=== PATIENT | female | born 1970 | race Caucasian/White ===

== ENCOUNTER 2017-04-12 19:34 | Emergency (ER) | payer SELFPAY ==
[2017-04-12] MEDS ORDERED: Rocephin 1000 MG INJ IM ONE (20:01)
[2017-04-12] MEDS ORDERED: NORCO 5/325 MG PO ONE ×2 (20:01→20:02)
--- NOTE | 2017-04-12 20:01 | ERPHSYRPT ---
- History of Present Illness Time Seen by Provider: 04/12/17 19:55 Source: patient Exam Limitations: no limitations Patient Subjective Stated Complaint: PT COMPLAINS OF DENTAL PAIN FOR THE LAST THREE DAYS. PT STATES PAIN IS NONSTOP. PT REPORTS PAIN TO THE RIGHT UPPER LIP AND RADIATES INTO THE SINUS AND EAR. Triage Nursing Assessment: PT IS AOX3, AMBULATORY TO COT W NO DIFFICULTIES SKIN IS PWD, RESPS ARE EASY AND NONLABORED. TENDERNESS TO THE RIGHT FACE. Physician History: FOR THE PAST MONTH PT HAS HAD RIGHT UPPER TOOTH PAIN, WORSE IN THE PAST 3 DAYS WITH RADIATION OF THE PAIN TO THE RIGHT EAR AND RIGHT SIDE OF THE NOSE. PT DENIES FEVER, NAUSEA, VOMITING, CHEST PAIN, SORE THROAT. Allergies/Adverse Reactions: No Known Drug Allergies Allergy (Verified 04/12/17 19:54) Home Medications: Metoprolol Succinate 50 mg [Toprol Xl 50 MG] 100 mg PO BID 04/12/17 [ History] Hx Tetanus, Diphtheria Vaccination/Date Given: Yes Hx Influenza Vaccination/Date Given: Yes Hx Pneumococcal Vaccination/Date Given: Yes Immunizations Up to Date: Yes - Review of Systems Constitutional: No Fever Ears, Nose, & Throat: Ear Pain, Nose Pain, Mouth Pain Respiratory: No Dyspnea Cardiac: No Chest Pain Abdominal/Gastrointestinal: No Nausea, No Vomiting All Other Systems: Reviewed and Negative - Past Medical History Pertinent Past Medical History: Yes Neurological History: Paralysis ENT History: No Pertinent History Cardiac History: Hypertension Respiratory History: No Pertinent History Endocrine Medical History: No Pertinent History Musculoskeletal History: No Pertinent History GI Medical History: No Pertinent History History: No Pertinent History Psycho-Social History: Anxiety Female Reproductive Disorders: No Pertinent History - Past Surgical History Past Surgical History: Yes Neuro Surgical History: No Pertinent History Cardiac: No Pertinent History Respiratory: No Pertinent History Gastrointestinal: No Pertinent History Genitourinary: No Pertinent History Musculoskeletal: No Pertinent History Female Surgical History: Section, Tubal Ligation - Social History Smoking Status: Never smoker Exposure to second hand smoke: Yes Drug Use: none Patient Lives Alone: No - Female History Hx Last Menstrual Period: 04/12/17 - Nursing Vital Signs Nursing Vital Signs: Initial Vital Signs Temperature 98.4 F Temperature Source Oral Pulse Rate 93 Respiratory Rate 20 Blood Pressure [Right Arm] 196/100 Pain Intensity 9 - Physical Exam General Appearance: alert Eye Exam: left eye: PERRL, EOMI Ear Exam: bilateral ear: TM normal Nasal Exam: normal inspection Throat Exam: dental tenderness (RIGHT MAXILLARY K-9 HAS MILDLY EDEMATOUS, ERYTHEMATOUS AND TENDER SURROUNDING GUM.) Neck Exam: normal inspection Cardiovascular/Respiratory Exam: normal breath sounds, heart sounds normal Abdominal Exam: soft (B.S. NORMAL) Neurologic Exam: alert, cooperative Skin Exam: warm, dry SpO2 Interpretation: normal SpO2: 99 Oxygen Delivery: Room Air - Course Nursing assessment & vital signs reviewed: Yes Ordered Tests: Medication Summary Generic Name Dose Route Start Last Admin Trade Name Freq PRN Reason Stop Dose Admin Hydrocodone Bitart/Acetaminophen 2 tab 04/12/17 20:02 [place] 5/325 Mg PO 04/12/17 20:03 SENT HOME W/ PATIENT ONE Discontinued Medications Generic Name Dose Route Start Last Admin Trade Name Freq PRN Reason Stop Dose Admin Hydrocodone Bitart/Acetaminophen 2 tab 04/12/17 20:01 [place] 5/325 Mg PO 04/12/17 20:02 STAT ONE Ceftriaxone Sodium 1,000 mg 04/12/17 20:01 Rocephin 1000 Mg Inj IM 04/12/17 20:02 STAT ONE - Departure Time of Disposition: 20:11 Departure Disposition: Home Clinical Impression: TOOTH ABSCESS Condition: Fair Critical Care Time: No Instructions: Tooth Abscess Additional Instructions: FOLLOW UP WITH DENTIST/PRIVATE DOCTOR TOMORROW. Prescriptions: Naproxen [Naprosyn] 500 mg PO Q12H PRN PRN #20 tablet PRN Reason: Pain Cephalexin Monohydrate [Keflex] 500 mg PO TID #30 capsule
[2017-04-12] MEDS ORDERED: NORCO 5/325 MG ONE (20:21)
[2017-04-12] MEDS ORDERED: Rocephin 1000 MG INJ ONE (20:21)
[2017-04-12] MEDS ORDERED: XYLOCAINE 1% HCL 20 ML MDV ONE (20:24)
[2017-04-12 20:44] VITALS: BP 172/98; PULSE 90; O2SAT 97
== END 2017-04-12 20:44 | disposition home or self-care (01) ==
LOC: ED 19:34
DX: K04.7 Periapical abscess without sinus (principal)
CPT/HCPCS: 96372; 99282; J0696; A9270-GY

== ENCOUNTER 2017-08-13 16:08 | Emergency (ER) | payer OTHER ==
[2017-08-13] MEDS ORDERED: BENADRYL 50 MG/ML IV ONE (16:24)
[2017-08-13] MEDS ORDERED: solu-MEDROL 125 MG IV ONE (16:24)
--- NOTE | 2017-08-13 16:24 | ERPHSYRPT ---
- History of Present Illness Time Seen by Provider: 08/13/17 16:16 Source: patient, family Exam Limitations: no limitations Physician History: The patient is a 46-year-old female with her boyfriend complaining of an itchy spreading rash on her arms chest back and neck since yesterday. She has taken Claritin and 50 mg of Benadryl orally without relief. She states she is having some chest tightness as well. Last week she began wearing her boyfriend's shirts which of been washing the different laundry detergent that she uses. Her past medical history is significant for hypertension. Timing/Duration: yesterday Quality: itchy Severity: moderate Location: torso, extremities (upper), neck Possible Causes: soaps Modifying Factors: Improves With: antihistamine Associated Symptoms: difficulty breathing, rash, No edema Allergies/Adverse Reactions: No Known Drug Allergies Allergy (Verified 08/13/17 16:23) Home Medications: Metoprolol Succinate 50 mg [Toprol Xl 50 MG] 100 mg PO BID 04/12/17 [ History] Hx Tetanus, Diphtheria Vaccination/Date Given: Yes Hx Influenza Vaccination/Date Given: Yes Hx Pneumococcal Vaccination/Date Given: Yes - Review of Systems Constitutional: No Fever, No Chills Eyes: No Symptoms Ears, Nose, & Throat: No Symptoms Respiratory: Dyspnea Cardiac: No Chest Pain, No Edema, No Syncope Abdominal/Gastrointestinal: No Abdominal Pain, No Nausea, No Vomiting, No Diarrhea Genitourinary Symptoms: No Dysuria Musculoskeletal: No Back Pain, No Neck Pain Skin: Pruritis, Rash Neurological: No Dizziness, No Focal Weakness, No Sensory Changes Psychological: No Symptoms Endocrine: No Symptoms Hematologic/Lymphatic: No Symptoms Immunological/Allergic: No Symptoms All Other Systems: Reviewed and Negative - Past Medical History Pertinent Past Medical History: Yes Neurological History: Paralysis ENT History: No Pertinent History Cardiac History: Hypertension Respiratory History: No Pertinent History Endocrine Medical History: No Pertinent History Musculoskeletal History: No Pertinent History GI Medical History: No Pertinent History History: No Pertinent History Psycho-Social History: Anxiety Female Reproductive Disorders: No Pertinent History - Past Surgical History Past Surgical History: Yes Neuro Surgical History: No Pertinent History Cardiac: No Pertinent History Respiratory: No Pertinent History Gastrointestinal: No Pertinent History Genitourinary: No Pertinent History Musculoskeletal: No Pertinent History Female Surgical History: Section, Tubal Ligation - Social History Smoking Status: Never smoker Exposure to second hand smoke: Yes Drug Use: none Patient Lives Alone: No - Physical Exam General Appearance: no apparent distress, alert Eye Exam: PERRL/EOMI, eyes nml inspection Ears, Nose, Throat Exam: normal ENT inspection, pharynx normal, moist mucous membranes Neck Exam: normal inspection, non-tender, supple, full range of motion Respiratory Exam: normal breath sounds, lungs clear, No respiratory distress, No wheezing, No stridor Cardiovascular Exam: regular rate/rhythm, normal heart sounds Gastrointestinal/Abdomen Exam: soft, mass, No tenderness Pelvic Exam: not done Rectal Exam: not done Back Exam: normal inspection, normal range of motion, No CVA tenderness, No vertebral tenderness Extremity Exam: normal inspection, normal range of motion, No swelling Neurologic Exam: alert, oriented x 3, cooperative, normal mood/affect, sensation nml, No motor deficits Skin Exam: rash (Examination of the skin of the chest, back, bilateral shoulders and upper arms, and back of the neck shows hive-like rash distributed over this region. No swelling noted on the face, lips, or throat.) SpO2 Interpretation: normal - Progress Progress: improved Counseled pt/family regarding: diagnosis - Departure Time of Disposition: 16:31 Departure Disposition: Home Clinical Impression: Allergic reaction Condition: Stable Critical Care Time: No Referrals: ALINE ANSARI [Primary Care Provider] - Additional Instructions: You have an allergic reaction. You were given Benadryl 50 mg, Solu-Medrol 125 mg, and Zofran 4 mg by IV in the ER. Take Benadryl 25-50 mg every 2-4 hours as needed. Take prednisone starting this evening 60 mg daily for 5 days. Take zofran 4 mg ODT every 6 hrs as needed. Avoid the laundry soap that we think caused the allergic reaction. Follow-up as needed. Prescriptions: Ondansetron ODT 4 MG [Zofran Odt 4 mg] 1 tab PO Q6H PRN PRN #10 tab.rapdis PRN Reason: Nausea/Vomiting Prednisone 10 mg [Deltasone 10 mg] 60 mg PO DAILY #30 tablet
[2017-08-13] MEDS ORDERED: solu-MEDROL 125 MG ONE (16:29)
[2017-08-13] MEDS ORDERED: BENADRYL 50 MG/ML ONE (16:29)
[2017-08-13] MEDS ORDERED: Zofran 4 MG/2 ML VIAL IV ONE (16:48)
[2017-08-13] MEDS ORDERED: Zofran 4 MG/2 ML VIAL ONE (16:51)
[2017-08-13 17:37] VITALS: BP 135/101; PULSE 90; O2SAT 98
== END 2017-08-13 17:37 | disposition home or self-care (01) ==
LOC: ED 16:08
DX: T78.40XA Allergy, unspecified, initial encounter (principal)
CPT/HCPCS: 36000; 96374; 96375; 99284; J1200; J2405; J2930

== ENCOUNTER 2017-08-15 13:37 | Emergency (ER) | payer OTHER ==
[2017-08-15] MEDS: solu-MEDROL 125 MG IV ONE (14:14)
[2017-08-15] MEDS ORDERED: ATARAX 25 MG ONE (14:15)
[2017-08-15] MEDS ORDERED: solu-MEDROL 125 MG ONE (14:15)
--- NOTE | 2017-08-15 14:15 | ERPHSYRPT ---
- History of Present Illness Time Seen by Provider: 08/15/17 14:05 Source: patient Exam Limitations: no limitations Patient Subjective Stated Complaint: PT states "I was in here sunday for an allergic reaction and I was given benadryl and steroids. I thought the reaction was to a new detergent and I have gotten rid of that detergent and re washed everything but I am still swollen." Triage Nursing Assessment: PT alert and oriented X 3, skin pwd. Pt ambulates with a steady upright gait, able to speak in clear full sentences. Pt eyes are swollen bilat, pt right wrist is swollen. appears in no respiratory distress. Physician History: 46-year-old white female states that she was seen here 2 days ago secondary to a rash it was felt that this was a contact dermatitis secondary to detergent. She states that she stopped the detergent she had been given a shot of Solu- Medrol and was placed on Benadryl and in a tapering prednisone. She apparently only took 2 of her prednisone tablets this morning. She states that she feels like she is swelling up more she states that her rash is a spreading and she feels like her hands are sore. Past medical history includes neuropathy, (patient had a list of paralysis on her chart when I asked her what this was she's winded in her right leg and stated it was from neuropathy). Patient also with history of high blood pressure and anxiety. Past surgical history includes and tubal ligation Timing/Duration: day(s) (2 days), worse Modifying Factors: Improves With: medication (patient was on Benadryl and prednisone) Associated Symptoms: rash, No nausea, No vomiting, No abdominal pain, No shortness of breath, No heartburn, No diaphoresis, No cough, No chills, No chest pain, No fever, No headaches, No loss of appetite, No malaise, No syncope , No seizure, No weakness Allergies/Adverse Reactions: No Known Drug Allergies Allergy (Verified 08/13/17 16:23) Home Medications: Metoprolol Succinate 50 mg [Toprol Xl 50 MG] 100 mg PO BID 04/12/17 [ History] Hx Tetanus, Diphtheria Vaccination/Date Given: Yes Hx Influenza Vaccination/Date Given: Yes Hx Pneumococcal Vaccination/Date Given: No Immunizations Up to Date: Yes - Review of Systems Constitutional: No Fever, No Chills Eyes: No Symptoms Ears, Nose, & Throat: No Symptoms, No Ear Pain, No Ear Discharge, No Hearing Changes, No Tinnitus, No Nose Pain, No Nose Congestion, No Nose Discharge, No Sinus Drainage, No Epistaxis, No Mouth Pain, No Mouth Swelling, No Loose Teeth, No Throat Pain, No Throat Swelling, No Hoarse, No Painful Swallowing, No Snoring Respiratory: Dyspnea (patient states she feels mildly short of breath) Cardiac: No Chest Pain, No Edema, No Syncope Abdominal/Gastrointestinal: No Abdominal Pain, No Nausea, No Vomiting, No Diarrhea Genitourinary Symptoms: No Dysuria Musculoskeletal: No Back Pain, No Neck Pain Skin: Rash (Erythematous raised rash on patient's trunk, bands, blanches) Neurological: No Dizziness, No Focal Weakness, No Sensory Changes Psychological: No Symptoms Endocrine: No Symptoms All Other Systems: Reviewed and Negative - Past Medical History Pertinent Past Medical History: Yes Neurological History: Paralysis ENT History: No Pertinent History Cardiac History: Hypertension Respiratory History: No Pertinent History Endocrine Medical History: No Pertinent History Musculoskeletal History: No Pertinent History GI Medical History: No Pertinent History History: No Pertinent History Psycho-Social History: Anxiety Female Reproductive Disorders: No Pertinent History - Past Surgical History Past Surgical History: Yes Neuro Surgical History: No Pertinent History Cardiac: No Pertinent History Respiratory: No Pertinent History Gastrointestinal: No Pertinent History Genitourinary: No Pertinent History Musculoskeletal: No Pertinent History Female Surgical History: Section, Tubal Ligation - Social History Smoking Status: Never smoker Exposure to second hand smoke: Yes Drug Use: none Patient Lives Alone: No - Female History Hx Last Menstrual Period: 05/08/2017 - Nursing Vital Signs Nursing Vital Signs: Initial Vital Signs Temperature 97.6 F 08/15/17 13:46 Pulse Rate 64 08/15/17 13:46 Respiratory Rate 18 08/15/17 13:46 Blood Pressure 163/80 08/15/17 13:46 O2 Sat by Pulse Oximetry 100 08/15/17 13:46 Pain Scale Pain Intensity 6 - Physical Exam General Appearance: mild distress Eye Exam: PERRL/EOMI, eyes nml inspection, other (fundi unremarkable) Ears, Nose, Throat Exam: normal ENT inspection, TMs normal, pharynx normal, moist mucous membranes Neck Exam: normal inspection, non-tender, supple, full range of motion Respiratory Exam: normal breath sounds, lungs clear, No respiratory distress Cardiovascular Exam: regular rate/rhythm, normal heart sounds, normal peripheral pulses Gastrointestinal/Abdomen Exam: soft, normal bowel sounds, No tenderness, No mass Back Exam: normal inspection, normal range of motion, No CVA tenderness, No vertebral tenderness Extremity Exam: normal inspection, normal range of motion, pelvis stable Neurologic Exam: alert, oriented x 3, cooperative, teacher II-XII nml as tested, normal mood/affect, nml cerebellar function, nml station & gait, sensation nml, No motor deficits Skin Exam: rash (erythematous raised rash on patient's trunk and arms hands) Lymphatic Exam: No adenopathy SpO2 Interpretation: normal (100%) SpO2: 100 Oxygen Delivery: Room Air Ordered Tests: Active Orders 24 hr Category Date Time Status CULTURE, THROAT Stat Lab 08/15/17 14:09 Received STREP SCREEN-BETA A Stat Lab 08/15/17 14:09 Completed Medication Summary Discontinued Medications Generic Name Dose Route Start Last Admin Trade Name Jimmyq PRN Reason Stop Dose Admin Hydroxyzine HCl 50 mg 08/15/17 14:09 08/15/17 14:17 Atarax 25 Mg PO 08/15/17 14:10 50 mg STAT ONE Administration Hydroxyzine HCl Confirm 08/15/17 14:15 Atarax 25 Mg Administered 08/15/17 14:16 Dose 50 mg .ROUTE .STK-MED ONE Methylprednisolone Sodium Succinate 125 mg 08/15/17 14:08 08/15/17 14:14 Solu-Medrol 125 Mg IV 08/15/17 14:09 Not Given STAT ONE Methylprednisolone Sodium Succinate 125 mg 08/15/17 14:11 08/15/17 14:17 Solu-Medrol 125 Mg IM 08/15/17 14:12 125 mg STAT ONE Administration Methylprednisolone Sodium Succinate Confirm 08/15/17 14:15 Solu-Medrol 125 Mg Administered 08/15/17 14:16 Dose 125 mg .ROUTE .STK-MED ONE Lab/Rad Data: Laboratory Results 08/15/17 Range/Units 14:09 Streptococcus Screen NEGATIVE (Negative) - Progress Progress: improved Progress Note: 08/15/17 14:41 Patient given Vistaril 50 mg orally and Solu-Medrol 125 IM. Rash appears to be improving. Will go ahead and discharge patient with a prescription for Vistaril 25 mg one to 2 orally every 6 hours as needed. , Plenty of fluids. , Patient is to follow-up with her family doctor. She is to return for acute distress or for severe symptoms. Strep is negative. She is to continue prednisone as prescribed 2 days ago 08/15/17 14:46 - Departure Time of Disposition: 14:47 Departure Disposition: Home Clinical Impression: Contact dermatitis Qualifiers: Contact dermatitis type: unspecified Contact dermatitis trigger: unspecified trigger Qualified Code(s): L25.9 - Unspecified contact dermatitis, unspecified cause Allergic reaction Qualifiers: Encounter type: subsequent encounter Qualified Code(s): T78.40XD - Allergy, unspecified, subsequent encounter Condition: Fair Critical Care Time: No Referrals: ALINE ANSARI [Primary Care Provider] - Additional Instructions: Return home. Continue prednisone as prescribed 2 days ago. Vistaril 25 mg one to 2 orally every 6 hours as needed. Plenty of fluids. Follow-up with your family doctor. Return for acute distress or for severe symptoms.
[2017-08-15] MEDS: solu-MEDROL 125 MG IM ONE (14:17)
[2017-08-15] MEDS: ATARAX 25 MG PO ONE (14:17)
[2017-08-15 14:59] VITALS: BP 133/74; PULSE 60; O2SAT 99
== END 2017-08-15 14:58 | disposition home or self-care (01) ==
LOC: ED 13:37
DX: L25.9 Unspecified contact dermatitis, unspecified cause (principal); T78.40XD Allergy, unspecified, subsequent encounter
CPT/HCPCS: 87070; 87430; J2930; A9270-GY

== ENCOUNTER 2017-10-13 18:56 | Emergency (ER) | payer OTHER ==
[2017-10-13] MEDS ORDERED: Hydromorphone 1 mg/ml Ampule IV ONE (19:08)
[2017-10-13] MEDS ORDERED: Phenergan 25 MG INJ IV ONE (19:08)
[2017-10-13] MEDS ORDERED: Sodium Chloride 0.9% 1000 ML 1,000 ML IV STA ×3 (19:08→22:03)
--- NOTE | 2017-10-13 19:08 | ERPHSYRPT ---
- History of Present Illness Time Seen by Provider: 10/13/17 19:00 Historian: patient Exam Limitations: no limitations Patient Subjective Stated Complaint: having vomiting and abdominal pain for a couple of days. started new medication for neuropathy but unsure of what it is.. has had a rash from antibiotics. says unable to keep anything down. Triage Nursing Assessment: anxious and alert. holding stomache. abdomen soft but slightly tender on palpation.. diffuse pain. states has been peeing everytime she vomits. staes tried to drink lemonade today but vomited. lungs clear bilarterally. Physician History: SINCE YESTERDAY PT HAS HAD VOMITING X10 WITHOUT BLOOD AND CONSTANT ACHY UPPER ABDOMINAL PAIN. PT ALSO C/O A FRONTAL HEADACHE FOR THE PAST 7 HOURS. LAST BM WAS 2 DAYS AGO & WNL. PT ALSO C/O NEUROPATHY PAIN IN HER FEET FOR OVER 1 YEAR. PT DENIES CHEST PAIN, SHORTNESS OF AIR, EARACHE. Allergies/Adverse Reactions: No Known Drug Allergies Allergy (Verified 10/13/17 19:18) Home Medications: Metoprolol Succinate 50 mg [Toprol Xl 50 MG] 100 mg PO BID 04/12/17 [ History] Hx Tetanus, Diphtheria Vaccination/Date Given: Yes Hx Influenza Vaccination/Date Given: Yes Hx Pneumococcal Vaccination/Date Given: No Immunizations Up to Date: (unknown) - Review of Systems Constitutional: No Chills Ears, Nose, & Throat: No Ear Pain Respiratory: No Cough, No Dyspnea Cardiac: No Chest Pain Abdominal/Gastrointestinal: Abdominal Pain, Vomiting, No Diarrhea Musculoskeletal: Other (NEUROPATHY PAIN IN FEET) Neurological: Headache Endocrine: No Excessive Sweating All Other Systems: Reviewed and Negative - Past Medical History Pertinent Past Medical History: Yes ENT History: No Pertinent History Cardiac History: Hypertension Respiratory History: No Pertinent History Endocrine Medical History: No Pertinent History Musculoskeletal History: No Pertinent History GI Medical History: No Pertinent History History: No Pertinent History Psycho-Social History: Anxiety Female Reproductive Disorders: No Pertinent History - Past Surgical History Past Surgical History: Yes Neuro Surgical History: No Pertinent History Cardiac: No Pertinent History Respiratory: No Pertinent History Gastrointestinal: No Pertinent History Genitourinary: No Pertinent History Musculoskeletal: No Pertinent History Female Surgical History: Section, Tubal Ligation - Social History Smoking Status: Never smoker Exposure to second hand smoke: No Drug Use: none Patient Lives Alone: No - Female History Hx Now: No - Nursing Vital Signs Nursing Vital Signs: Initial Vital Signs Temperature 98.4 F 10/13/17 18:57 Pulse Rate 99 H 10/13/17 18:57 Respiratory Rate 22 10/13/17 18:57 Blood Pressure 186/79 10/13/17 18:57 O2 Sat by Pulse Oximetry 98 10/13/17 18:57 Pain Scale Pain Intensity 5 - Physical Exam General Appearance: alert Eye Exam: PERRL/EOMI Ears, Nose, Throat Exam: TMs normal, dry mucous membranes, pharyngeal erythema Neck Exam: normal inspection Respiratory Exam: lungs clear Cardiovascular Exam: normal heart sounds Gastrointestinal/Abdomen Exam: soft, tenderness (MILD DIFFUSE TENDERNESS), other (B.S. MILDLY HYPERACTIVE AND NORMOTONIC), No guarding Back Exam: normal range of motion Extremity Exam: normal inspection, No pedal edema Neurologic Exam: alert, cooperative Skin Exam: warm, dry SpO2 Interpretation: normal SpO2: 98 Oxygen Delivery: Room Air - Course Nursing assessment & vital signs reviewed: Yes - CT Exams Abdomen/Pelvis CT Interpretation: Tele-radiologist Report (SLUDGE IN GALLBLADDER. SEE REST OF REPORT.) Ordered Tests: Active Orders 24 hr Category Date Time Status Clean Catch Urine Specimen STAT Care 10/13/17 19:08 Active IV Insertion STAT Care 10/13/17 19:08 Active ABDOMEN AND PELVIS W/0 CONTRAS [CT] Stat Exams 10/13/17 19:09 Taken AMYLASE Stat Lab 10/13/17 19:30 Completed BMP Stat Lab 10/13/17 22:30 Completed CBC W DIFF Stat Lab 10/13/17 19:30 Completed CMP Stat Lab 10/13/17 19:30 Completed CULTURE, THROAT Stat Lab 10/13/17 19:30 Received HCG QUALITATIVE,SERUM Stat Lab 10/13/17 19:30 Completed LIPASE Stat Lab 10/13/17 19:30 Completed MAG [MAGNESIUM] Stat Lab 10/13/17 19:30 Completed MAG [MAGNESIUM] Stat Lab 10/13/17 22:30 Completed [place] Screen Stat Lab 10/13/17 19:30 Completed STREP SCREEN-BETA A Stat Lab 10/13/17 19:30 Completed UA W/RFX UR CULTURE Stat Lab 10/13/17 23:55 Completed Urine Triage Profile Stat Lab 10/13/17 23:55 Completed Medication Summary Generic Name Dose Route Start Last Admin Trade Name Freq PRN Reason Stop Dose Admin Hydromorphone HCl 1 mg 10/14/17 00:29 Hydromorphone 1 Mg/Ml Ampule IV 10/14/17 00:30 STAT ONE Sodium Chloride 1,000 mls @ 999 mls/hr 10/13/17 23:45 10/13/17 23:45 Sodium Chloride 0.45% 1000 Ml IV 11/12/17 23:44 999 mls/hr .Q1H1M MICHELLE Administration Promethazine HCl 12.5 mg 10/14/17 00:29 Phenergan 25 Mg Inj IV 10/14/17 00:30 STAT ONE Discontinued Medications Generic Name Dose Route Start Last Admin Trade Name Nitin PRN Reason Stop Dose Admin Hydromorphone HCl 1 mg 10/13/17 19:08 10/13/17 19:19 Hydromorphone 1 Mg/Ml Ampule IV 10/13/17 19:09 1 mg STAT ONE Administration Hydromorphone HCl Confirm 10/13/17 19:14 Hydromorphone 1 Mg/Ml Ampule Administered 10/13/17 19:15 Dose 1 mg .ROUTE .STK-MED ONE Sodium Chloride 1,000 mls @ 999 mls/hr 10/13/17 19:08 10/13/17 19:19 Sodium Chloride 0.9% 1000 Ml IV 10/13/17 20:08 999 mls/hr .Q1H1M STA Administration Sodium Chloride Confirm 10/13/17 19:14 Sodium Chloride 0.9% 1000 Ml Administered 10/13/17 19:15 Dose 1,000 mls @ ud .ROUTE .STK-MED ONE Sodium Chloride 1,000 mls @ 999 mls/hr 10/13/17 20:53 10/13/17 20:56 Sodium Chloride 0.9% 1000 Ml IV 10/13/17 21:53 999 mls/hr .Q1H1M STA Administration Sodium Chloride Confirm 10/13/17 20:55 Sodium Chloride 0.9% 1000 Ml Administered 10/13/17 20:56 Dose 1,000 mls @ ud .ROUTE .STK-MED ONE Sodium Chloride 1,000 mls @ 999 mls/hr 10/13/17 22:03 10/13/17 22:06 Sodium Chloride 0.9% 1000 Ml IV 10/13/17 23:03 999 mls/hr .Q1H1M STA Administration Sodium Chloride Confirm 10/13/17 22:04 Sodium Chloride 0.9% 1000 Ml Administered 10/13/17 22:05 Dose 1,000 mls @ ud .ROUTE .STK-MED ONE Sodium Chloride Confirm 10/13/17 23:42 Sodium Chloride 0.9% 1000 Ml Administered 10/13/17 23:43 Dose 1,000 mls @ ud .ROUTE .STK-MED ONE Promethazine HCl 12.5 mg 10/13/17 19:08 10/13/17 19:19 Phenergan 25 Mg Inj IV 10/13/17 19:09 12.5 mg STAT ONE Administration Promethazine HCl Confirm 10/13/17 19:13 Phenergan 25 Mg Inj Administered 10/13/17 19:14 Dose 25 mg .ROUTE .STK-MED ONE Lab/Rad Data: Laboratory Result Diagrams 10/13/17 19:30 10/13/17 22:30 Laboratory Results 10/13/17 10/13/17 10/13/17 Range/Units 23:55 23:55 22:30 WBC (4.0-10.5) K/mm3 RBC (4.1-5.4) M/mm3 Hgb (12.0-16.0) gm/dl Hct (35-47) % MCV (78-100) fl MCH (26-32) pg MCHC (32-36) g/dl RDW (11.5-14.0) % Plt Count (150-450) K/mm3 MPV (6-9.5) fl Gran % (36.0-66.0) % Lymphocytes % (24.0-44.0) % Monocytes % (0.0-12.0) % Eosinophils % (0.00-5.0) % Basophils % (0.0-0.4) % Basophils # (0-0.4) Sodium 149 H (136-145) mEq/L Potassium 3.9 (3.5-5.1) mEq/L Chloride 114 H (98-107) mEq/L Carbon Dioxide 23.5 (21-32) mEq/L Anion Gap 15.3 H (5-15) MEQ/L BUN 14 (9-20) mg/dL Creatinine 0.74 (0.55-1.30) mg/dl Estimated GFR > 60 ML/MIN Glucose 77 (70-110) MG/DL Calcium 8.3 L (8.5-10.1) mg/dL Magnesium 1.8 (1.8-2.4) mg/dL Total Bilirubin (0.2-1.0) mg/dL AST (15-37) U/L ALT (12-78) U/L Alkaline Phosphatase (46-116) U/L Serum Total Protein (6.4-8.2) gm/dL Albumin (3.4-5.0) g/dL Amylase (25-115) U/L Lipase (73-393) U/L Serum , Qual (Negative) Ur Collection Type CLEAN CATCH Urine Color YELLOW (YELLOW) Urine Appearance CLEAR (CLEAR) Urine pH 6.0 (5-6) Ur Specific [place] 1.015 (1.005-1.025) Urine Protein NEGATIVE (Negative) Urine Ketones NEGATIVE (NEGATIVE) Urine Blood NEGATIVE (0-5) Jamshid/ul Urine Nitrite NEGATIVE (NEGATIVE) Urine Bilirubin NEGATIVE (NEGATIVE) Urine Urobilinogen NORMAL (0-1) mg/dL Ur Leukocyte Esterase NEGATIVE (NEGATIVE) Urine Culture Reflexed NO (NO) Urine Glucose NEGATIVE (NEGATIVE) mg/dL Urine Opiates Level NEG. (NEGATIVE) Ur Methadone NEG. (NEGATIVE) Urine Barbiturates NEG. (NEGATIVE) Ur Phencyclidine (PCP) NEG. (NEGATIVE) Urine Amphetamine NEG. (NEGATIVE) U Benzodiazepine Level NEG. (NEGATIVE) Urine Cocaine NEG. (NEGATIVE) Urine Marijuana (THC) NEG. (NEGATIVE) Monoscreen (Negative) Influenza Type A Ag (NEGATIVE) Influenza Type B Ag (NEGATIVE) RSV (PCR) (Negative) Streptococcus Screen (Negative) Specimen Received 10/13/17 [id number] 10/13/17 10/13/17 10/13/17 Range/Units 19:30 19:30 19:30 WBC (4.0-10.5) K/mm3 RBC (4.1-5.4) M/mm3 Hgb (12.0-16.0) gm/dl Hct (35-47) % MCV (78-100) fl MCH (26-32) pg MCHC (32-36) g/dl RDW (11.5-14.0) % Plt Count (150-450) K/mm3 MPV (6-9.5) fl Gran % (36.0-66.0) % Lymphocytes % (24.0-44.0) % Monocytes % (0.0-12.0) % Eosinophils % (0.00-5.0) % Basophils % (0.0-0.4) % Basophils # (0-0.4) Sodium (136-145) mEq/L Potassium (3.5-5.1) mEq/L Chloride (98-107) mEq/L Carbon Dioxide (21-32) mEq/L Anion Gap (5-15) MEQ/L BUN (9-20) mg/dL Creatinine (0.55-1.30) mg/dl Estimated GFR ML/MIN Glucose (70-110) MG/DL Calcium (8.5-10.1) mg/dL Magnesium (1.8-2.4) mg/dL Total Bilirubin (0.2-1.0) mg/dL AST (15-37) U/L ALT (12-78) U/L Alkaline Phosphatase (46-116) U/L Serum Total Protein (6.4-8.2) gm/dL Albumin (3.4-5.0) g/dL Amylase (25-115) U/L Lipase (73-393) U/L Serum , Qual (Negative) Ur Collection Type Urine Color (YELLOW) Urine Appearance (CLEAR) Urine pH (5-6) Ur Specific [place] (1.005-1.025) Urine Protein (Negative) Urine Ketones (NEGATIVE) Urine Blood (0-5) Jamshid/ul Urine Nitrite (NEGATIVE) Urine Bilirubin (NEGATIVE) Urine Urobilinogen (0-1) mg/dL Ur Leukocyte Esterase (NEGATIVE) Urine Culture Reflexed (NO) Urine Glucose (NEGATIVE) mg/dL Urine Opiates Level (NEGATIVE) Ur Methadone (NEGATIVE) Urine Barbiturates (NEGATIVE) Ur Phencyclidine (PCP) (NEGATIVE) Urine Amphetamine (NEGATIVE) U Benzodiazepine Level (NEGATIVE) Urine Cocaine (NEGATIVE) Urine Marijuana (THC) (NEGATIVE) Monoscreen NEGATIVE (Negative) Influenza Type A Ag NEGATIVE (NEGATIVE) Influenza Type B Ag NEGATIVE (NEGATIVE) RSV (PCR) NEGATIVE (Negative) Streptococcus Screen NEGATIVE (Negative) Specimen Received 10/13/17 10/13/17 10/13/17 Range/Units 19:30 19:30 19:30 WBC (4.0-10.5) K/mm3 RBC (4.1-5.4) M/mm3 Hgb (12.0-16.0) gm/dl Hct (35-47) % MCV (78-100) fl MCH (26-32) pg MCHC (32-36) g/dl RDW (11.5-14.0) % Plt Count (150-450) K/mm3 MPV (6-9.5) fl Gran % (36.0-66.0) % Lymphocytes % (24.0-44.0) % Monocytes % (0.0-12.0) % Eosinophils % (0.00-5.0) % Basophils % (0.0-0.4) % Basophils # (0-0.4) Sodium 148 H (136-145) mEq/L Potassium 3.5 (3.5-5.1) mEq/L Chloride 110 H (98-107) mEq/L Carbon Dioxide 25.4 (21-32) mEq/L Anion Gap 15.7 H (5-15) MEQ/L BUN 16 (9-20) mg/dL Creatinine 0.83 (0.55-1.30) mg/dl Estimated GFR > 60 ML/MIN Glucose 87 (70-110) MG/DL Calcium 9.1 (8.5-10.1) mg/dL Magnesium 1.8 (1.8-2.4) mg/dL Total Bilirubin 0.30 (0.2-1.0) mg/dL AST 14 L (15-37) U/L ALT 25 (12-78) U/L Alkaline Phosphatase 69 (46-116) U/L Serum Total Protein 7.4 (6.4-8.2) gm/dL Albumin 4.4 (3.4-5.0) g/dL Amylase 37 (25-115) U/L Lipase 142 (73-393) U/L Serum , Qual NEGATIVE (Negative) Ur Collection Type Urine Color (YELLOW) Urine Appearance (CLEAR) Urine pH (5-6) Ur Specific [place] (1.005-1.025) Urine Protein (Negative) Urine Ketones (NEGATIVE) Urine Blood (0-5) Jamshid/ul Urine Nitrite (NEGATIVE) Urine Bilirubin (NEGATIVE) Urine Urobilinogen (0-1) mg/dL Ur Leukocyte Esterase (NEGATIVE) Urine Culture Reflexed (NO) Urine Glucose (NEGATIVE) mg/dL Urine Opiates Level (NEGATIVE) Ur Methadone (NEGATIVE) Urine Barbiturates (NEGATIVE) Ur Phencyclidine (PCP) (NEGATIVE) Urine Amphetamine (NEGATIVE) U Benzodiazepine Level (NEGATIVE) Urine Cocaine (NEGATIVE) Urine Marijuana (THC) (NEGATIVE) Monoscreen (Negative) Influenza Type A Ag (NEGATIVE) Influenza Type B Ag (NEGATIVE) RSV (PCR) (Negative) Streptococcus Screen (Negative) Specimen Received 10/13/17 Range/Units 19:30 WBC 6.9 (4.0-10.5) K/mm3 RBC 4.19 (4.1-5.4) M/mm3 Hgb 12.8 (12.0-16.0) gm/dl Hct 39.0 (35-47) % MCV 93.1 (78-100) fl MCH 30.5 (26-32) pg MCHC 32.8 (32-36) g/dl RDW 13.1 (11.5-14.0) % Plt Count 241 (150-450) K/mm3 MPV 10.4 H (6-9.5) fl Gran % 59.2 (36.0-66.0) % Lymphocytes % 30.5 (24.0-44.0) % Monocytes % 7.7 (0.0-12.0) % Eosinophils % 1.7 (0.00-5.0) % Basophils % 0.9 (0.0-0.4) % Basophils # 0.06 (0-0.4) Sodium (136-145) mEq/L Potassium (3.5-5.1) mEq/L Chloride (98-107) mEq/L Carbon Dioxide (21-32) mEq/L Anion Gap (5-15) MEQ/L BUN (9-20) mg/dL Creatinine (0.55-1.30) mg/dl Estimated GFR ML/MIN Glucose (70-110) MG/DL Calcium (8.5-10.1) mg/dL Magnesium (1.8-2.4) mg/dL Total Bilirubin (0.2-1.0) mg/dL AST (15-37) U/L ALT (12-78) U/L Alkaline Phosphatase (46-116) U/L Serum Total Protein (6.4-8.2) gm/dL Albumin (3.4-5.0) g/dL Amylase (25-115) U/L Lipase (73-393) U/L Serum , Qual (Negative) Ur Collection Type Urine Color (YELLOW) Urine Appearance (CLEAR) Urine pH (5-6) Ur Specific [place] (1.005-1.025) Urine Protein (Negative) Urine Ketones (NEGATIVE) Urine Blood (0-5) Jamshid/ul Urine Nitrite (NEGATIVE) Urine Bilirubin (NEGATIVE) Urine Urobilinogen (0-1) mg/dL Ur Leukocyte Esterase (NEGATIVE) Urine Culture Reflexed (NO) Urine Glucose (NEGATIVE) mg/dL Urine Opiates Level (NEGATIVE) Ur Methadone (NEGATIVE) Urine Barbiturates (NEGATIVE) Ur Phencyclidine (PCP) (NEGATIVE) Urine Amphetamine (NEGATIVE) U Benzodiazepine Level (NEGATIVE) Urine Cocaine (NEGATIVE) Urine Marijuana (THC) (NEGATIVE) Monoscreen (Negative) Influenza Type A Ag (NEGATIVE) Influenza Type B Ag (NEGATIVE) RSV (PCR) (Negative) Streptococcus Screen (Negative) Specimen Received - Departure Time of Disposition: 00:34 Departure Disposition: Home Clinical Impression: VOMITING, DEHYDRATION, ABDOMINAL PAIN Condition: Stable Critical Care Time: No Referrals: ALINE ANSARI [Primary Care Provider] - Instructions: Vomiting -- Adult Additional Instructions: FOLLOW UP WITH PRIVATE DOCTOR TOMORROW. RETURN TO [facility] FOR AN OUTPATIENT GALLBLADDER ULTRASOUND. Prescriptions: Ondansetron [Zofran Odt] 4 mg PO Q4H PRN PRN #14 tab.rapdis PRN Reason: Nausea/Vomiting
[2017-10-13] MEDS ORDERED: Phenergan 25 MG INJ ONE (19:13)
[2017-10-13] MEDS ORDERED: Hydromorphone 1 mg/ml Ampule ONE (19:14)
[2017-10-13] MEDS ORDERED: Sodium Chloride 0.9% 1000 ML 1,000 ML ONE ×3 (19:14→22:04)
[2017-10-13 19:39] LABS: BASOPHIL % 0.9 % (0.0-0.4); Eosinophil % 1.7 % (0.00-5.0); Granulocytes % 59.2 % (36.0-66.0); Lymphocytes % 30.5 % (24.0-44.0); Mean Cell Volume 93.1 fl (78-100); Mean Corpuscular Hemoglobin 30.5 pg (26-32); Mean Platelet Volume 10.4 fl (6-9.5); Monocytes % 7.7 % (0.0-12.0); Platelet Count 241 K/mm3 (150-450); Red Blood Count 4.19 M/mm3 (4.1-5.4); Red Cell Distribution Width 13.1 % (11.5-14.0); White Blood Count 6.9 K/mm3 (4.0-10.5)
[2017-10-13 20:02] LABS: ALBUMIN 4.4 g/dL (3.4-5.0); ALKALINE PHOSPHATASE 69 U/L (46-116); ANION GAP 15.7 MEQ/L (5-15); BLOOD UREA NITROGEN 16 mg/dL (9-20); CHLORIDE 110 mEq/L (98-107); Carbon Dioxide 25.4 mEq/L (21-32); Glucose 87 MG/DL (70-110); LIPASE 142 U/L (73-393); Potassium 3.5 mEq/L (3.5-5.1); SGOT/AST 14 U/L (15-37); SGPT/ALT 25 U/L (12-78); SODIUM 148 mEq/L (136-145); Total Protein 7.4 gm/dL (6.4-8.2)
[2017-10-13 22:45] LABS: ANION GAP 15.3 MEQ/L (5-15); BLOOD UREA NITROGEN 14 mg/dL (9-20); CHLORIDE 114 mEq/L (98-107); Carbon Dioxide 23.5 mEq/L (21-32); Glucose 77 MG/DL (70-110); MAGNESIUM 1.8 mg/dL (1.8-2.4); Potassium 3.9 mEq/L (3.5-5.1); SODIUM 149 mEq/L (136-145)
[2017-10-13] MEDS ORDERED: Sodium Chloride 0.9% 1000 ML 0 ML ONE (23:42)
[2017-10-14 00:06] LABS: Collection Type CLEAN CATCH
[2017-10-14 00:07] LABS: ADD URINE CULTURE? NO (NO); Bilirubin NEGATIVE (NEGATIVE); Blood NEGATIVE Ery/ul (0-5); COMPLETE URINE MICROSCOPIC? NO; Glucose NEGATIVE (NEGATIVE); Leukocyte Esterase NEGATIVE (NEGATIVE)
[2017-10-14] MEDS ORDERED: Hydromorphone 1 mg/ml Ampule IV ONE (00:29)
[2017-10-14] MEDS ORDERED: Phenergan 25 MG INJ IV ONE (00:29)
[2017-10-14] MEDS ORDERED: Phenergan 25 MG INJ ONE (00:38)
[2017-10-14] MEDS ORDERED: Hydromorphone 1 mg/ml Ampule ONE (00:38)
[2017-10-14 02:34] VITALS: BP 142/63; PULSE 70; O2SAT 97
--- NOTE | 2017-10-14 08:13 | XRAY ---
Indication: Abdomen pain and vomiting. Multiple contiguous axial images obtained through the abdomen and pelvis without contrast as ordered. Comparison: None Lung bases demonstrates minimal bibasilar dependent atelectasis. Heart is not enlarged. Noncontrasted stomach and bowel loops appear nonobstructed. Mild diffuse scattered colonic fecal debris throughout. Normal appendix. 2 cm left ovary cyst. No free fluid/air. Punctate calcification in the right upper renal cortex. Remaining liver, gallbladder, pancreas, spleen, adrenal glands, kidneys, ureters, bladder, uterus, and aorta appear unremarkable for noncontrasted exam. Osseous structures intact. Impression: 1. Fecal stasis without obstruction. 2. 2 cm left ovary cyst. 3. Punctate right renal cortical calcification. Comment: Preliminary interpretation was made by C. No critical discrepancy. CTDI 11.66
== END 2017-10-14 02:33 | disposition home or self-care (01) ==
LOC: ED 18:56
DX: R10.9 Unspecified abdominal pain (principal); R51 Headache; I10 Essential (primary) hypertension
CPT/HCPCS: 36000; 36415; 74176; 80048; 80053; 80307; 81002; 82150; 83690; 83735; 84703; 85025; 86308; 87070; 87430; 87631; 96360; 96361; 96374; 96375; 96376; 99284; J1170; J2550

== ENCOUNTER 2017-11-18 18:41 | Emergency (ER) | payer OTHER ==
[2017-11-18] MEDS ORDERED: XYLOCAINE VISCOUS 2% 20 ML CUP PO ONE (19:12)
[2017-11-18] MEDS ORDERED: Phenergan 25 MG INJ IM ONE (19:12)
[2017-11-18] MEDS ORDERED: TORAdol 30 mg Injection IM ONE (19:12)
[2017-11-18] MEDS ORDERED: Phenergan 25 MG INJ ONE (19:17)
[2017-11-18] MEDS ORDERED: TORAdol 30 mg Injection ONE (19:17)
--- NOTE | 2017-11-18 19:17 | ERPHSYRPT ---
- History of Present Illness Time Seen by Provider: 11/18/17 19:13 Source: patient, family Exam Limitations: no limitations Patient Subjective Stated Complaint: pt c/o dental pain with abscess since july. reports drainage this evening after pushing on her right face. reports her tooth also fell out tonight after pushing on her right upper lip. Triage Nursing Assessment: pt is aox3, pt is yelling and cussing upon exam. pt continually spitting into emesis bag during exam. pupils perrl, resps easy and non labored, radial pulses are strong and equal, upon exam of the mouth, a tooth fragment remains in the location of the upper right canine. no swelling or redness noted to the face. no drainge noted by this nurse. Physician History: pt c/o dental pain with abscess since july. reports drainage this evening after pushing on her right face. reports her tooth also fell out tonight after pushing on her right upper lip. Timing/Duration: week(s) Severity: severe Associated Symptoms: nausea, other (severe shooting pain right upper incissor) Allergies/Adverse Reactions: No Known Drug Allergies Allergy (Verified 11/18/17 19:01) Home Medications: Metoprolol Succinate 50 mg [Toprol Xl 50 MG] 100 mg PO BID 04/12/17 [ History] Hx Tetanus, Diphtheria Vaccination/Date Given: Yes Hx Influenza Vaccination/Date Given: Yes Hx Pneumococcal Vaccination/Date Given: No Immunizations Up to Date: Yes - Review of Systems Constitutional: No Fever, No Chills Eyes: No Symptoms Ears, Nose, & Throat: No Symptoms, Mouth Swelling, Loose Teeth Respiratory: No Cough, No Dyspnea Cardiac: No Chest Pain, No Edema, No Syncope Abdominal/Gastrointestinal: No Abdominal Pain, No Nausea, No Vomiting, No Diarrhea Genitourinary Symptoms: No Dysuria Musculoskeletal: No Back Pain, No Neck Pain Skin: No Rash Neurological: No Dizziness, No Focal Weakness, No Sensory Changes Psychological: No Symptoms Endocrine: No Symptoms All Other Systems: Reviewed and Negative - Past Medical History Pertinent Past Medical History: Yes Neurological History: Paralysis ENT History: No Pertinent History Cardiac History: Hypertension Respiratory History: No Pertinent History Endocrine Medical History: No Pertinent History Musculoskeletal History: No Pertinent History GI Medical History: No Pertinent History History: No Pertinent History Psycho-Social History: Anxiety Female Reproductive Disorders: No Pertinent History - Past Surgical History Past Surgical History: Yes Neuro Surgical History: No Pertinent History Cardiac: No Pertinent History Respiratory: No Pertinent History Gastrointestinal: No Pertinent History Genitourinary: No Pertinent History Musculoskeletal: No Pertinent History Female Surgical History: Section, Tubal Ligation - Social History Smoking Status: Never smoker Exposure to second hand smoke: No Drug Use: none Patient Lives Alone: No - Female History Hx Last Menstrual Period: pre betito Hx Now: No - Nursing Vital Signs Nursing Vital Signs: Initial Vital Signs Temperature 98.1 F 11/18/17 18:47 Pulse Rate 118 H 11/18/17 18:47 Respiratory Rate 24 11/18/17 18:47 O2 Sat by Pulse Oximetry 96 11/18/17 18:47 Pain Scale Pain Intensity 10 - Physical Exam General Appearance: no apparent distress, alert Eye Exam: PERRL/EOMI, eyes nml inspection Ears, Nose, Throat Exam: normal ENT inspection, TMs normal, pharynx normal, moist mucous membranes, other (right upper incissor tooth decay) Neck Exam: normal inspection, non-tender, supple, full range of motion Respiratory Exam: normal breath sounds, lungs clear, No respiratory distress Cardiovascular Exam: regular rate/rhythm, normal heart sounds, normal peripheral pulses Gastrointestinal/Abdomen Exam: soft, normal bowel sounds, No tenderness, No mass Back Exam: normal inspection, normal range of motion, No CVA tenderness, No vertebral tenderness Extremity Exam: normal inspection, normal range of motion, pelvis stable Neurologic Exam: alert, oriented x 3, cooperative, normal mood/affect, nml cerebellar function, nml station & gait, sensation nml, No motor deficits Skin Exam: normal color, warm, dry, No rash Lymphatic Exam: No adenopathy SpO2: 96 Oxygen Delivery: Room Air - Course Nursing assessment & vital signs reviewed: Yes Ordered Tests: Medication Summary Discontinued Medications Generic Name Dose Route Start Last Admin Trade Name Freq PRN Reason Stop Dose Admin Ketorolac Tromethamine 60 mg 11/18/17 19:12 11/18/17 19:21 Toradol 30 Mg Injection IM 11/18/17 19:13 60 mg STAT ONE Administration Ketorolac Tromethamine Confirm 11/18/17 19:17 Toradol 30 Mg Injection Administered 11/18/17 19:18 Dose 60 mg .ROUTE .STK-MED ONE Lidocaine HCl 20 ml 11/18/17 19:12 11/18/17 19:21 Xylocaine Viscous 2% 20 Ml Cup PO 11/18/17 19:13 20 ml STAT ONE Administration Lidocaine HCl Confirm 11/18/17 19:19 Xylocaine Hcl Viscous * Administered 11/18/17 19:20 Dose 20 ml .ROUTE .STK-MED ONE Promethazine HCl 25 mg 11/18/17 19:12 11/18/17 19:21 Phenergan 25 Mg Inj IM 11/18/17 19:13 25 mg STAT ONE Administration Promethazine HCl Confirm 11/18/17 19:17 Phenergan 25 Mg Inj Administered 11/18/17 19:18 Dose 25 mg .ROUTE .STK-MED ONE - Progress Progress: improved, pain not gone completely Progress Note: 11/18/17 19:25 Patient has been extremely rude in emergency room with nurse and the physician. Patient has been asking for narcotics, patient has been explained that for this type of problem. Narcotics are not advised. She really needed to see the dentist, but patient states that she has no insurance and she will not be able to see dentist till November. I advise her that she should seek dentist BLANCA. Patient started becoming more and more rude so she was advised that if she is not happy with our care. She should seek care somewhere else, but she should not be rude to our ER staff Counseled pt/family regarding: diagnosis, need for follow-up (with dentist) - Departure Time of Disposition: 19:16 Departure Disposition: Home Clinical Impression: Dental abscess Condition: Stable Critical Care Time: No Referrals: ALINE ANSARI [Primary Care Provider] - Instructions: Tooth Abscess, Tooth Decay Prescriptions: Amoxicillin 500 mg Cap [Amoxil 500 mg] 500 mg PO TID #30 capsule Naproxen 500 mg [Naprosyn 500 MG] 500 mg PO BIDAC #30 tablet
[2017-11-18] MEDS ORDERED: XYLOCAINE HCl Viscous ONE (19:19)
[2017-11-18] MEDS ORDERED: Rocephin 1000 MG INJ IM ONE (19:29)
[2017-11-18] MEDS ORDERED: XYLOCAINE 1% HCL 20 ML MDV ONE (19:31)
[2017-11-18] MEDS ORDERED: Rocephin 1000 MG INJ ONE (19:31)
[2017-11-18] MEDS ORDERED: FEVERALL 120 MG RC ONE (19:41)
[2017-11-18 19:53] VITALS: BP 148/97; PULSE 87; O2SAT 99
== END 2017-11-18 19:53 | disposition home or self-care (01) ==
LOC: ED 18:41
DX: K04.7 Periapical abscess without sinus (principal)
CPT/HCPCS: 96372; 99284; J0696; J1885; J2550; A9270-GY